=== PATIENT | male | born 1955 | race Caucasian/White ===

== ENCOUNTER 2022-05-09 23:09 | Emergency (ER) | payer OTHER, BC ==
[~2022-05-09] VITALS: Ht 172.7 cm; Wt 77.1 kg
[2022-05-09 23:15] VITALS: BP_SYST 152
--- NOTE | 2022-05-09 23:15 | NUR ---
Placed to ER bed 07, report given to BETSY Lorenzo.
--- NOTE | 2022-05-09 23:25 | NUR ---
ER MD AT BEDSIDE AT THIS TIME
--- NOTE | 2022-05-10 00:10 | NUR ---
# 20 gauge angiocath placed to RFA. Use of asceptic technique. Opsite placed over site. Blood return noted. Flushed with 10 cc of normal saline. No evidence of infiltration noted. Patient tolerated well.
[2022-05-10] MEDS ORDERED: cefTRIAXone 1 GM IVPB PREMIX 50 ML IV ONE (00:15)
[2022-05-10] MEDS ORDERED: TRAM50TA2 PO (00:25)
[2022-05-10] MEDS ORDERED: CEPH-548 PO (00:25)
--- NOTE | 2022-05-10 00:57 | NUR ---
Patient given written and verbal discharge instructions and verbalizes understanding. ER MD discussed with patient the results and treatment provided. Patient in stable condition. Rx of given. Patient educated on pain management and to follow up with PMD. Pain Scale [0]. Opportunity for questions provided and answered. Medication side effect fact sheet provided.
== END 2022-05-10 01:01 | disposition home or self-care (01) ==
LOC: SED 23:09
DX: L03.116 Cellulitis of left lower limb (principal); M25.562 Pain in left knee; Z79.899 Other long term (current) drug therapy
CPT/HCPCS: 99284; 20610; 73560; 96365; J0696